=== PATIENT | female | born 1975 | race Caucasian/White ===

== ENCOUNTER 2016-12-14 21:43 | Emergency (ER) | payer BC ==
[~2016-12-14] VITALS: Ht 157.5 cm; Wt 131.5 kg
[~2016-12-14 21:43] MED LIST: HYDR-762 PO; IBUP800T25 PO
[2016-12-14 22:17] VITALS: Ht 157.5 cm; Wt 131.5 kg
[2016-12-14] MEDS ORDERED: IBUPROFEN 600 MG TAB PO ONE (23:00)
[2016-12-14] MEDS ORDERED: NAPR-260 PO (23:02)
--- NOTE | 2016-12-14 23:16 | ERD ---
ER Documentation Chief Complaint Date/Time DATE: 12/14/16 TIME: 23:04 Chief Complaint pain/lump left breast x 3 days HPI This is a 41-year-old otherwise healthy female who presents the emergency department complaining of a painful lump of her left breast 3 days. Patient states that she noticed the pain when putting on her bra off and then felt a small lump in her breast. She states she is concerned as her great aunt had breast cancer however she denies breast cancer among her siblings, parents, grandparents. She denies any redness or swelling of her skin. She denies fever , nausea, vomiting. She denies any chills or night sweats. Her last menstrual period was 1 week ago. No other complaints at this time. ROS All systems reviewed and are negative except as per history of present illness. Medications Home Meds Active Scripts Naproxen* (Naprosyn*) 500 Mg Tablet, 500 MG PO BID for 14 Days, TAB Prov:CRYSTAL ANDREWS PA-C 12/14/16 Hydrocodone Bit-Acetaminophen* ([place]*) 10-325 Mg Tablet, 1 TAB PO Q6 Y for PAIN , #20 TAB Prov:YAMILET LOERA MD 02/15/15 Ibuprofen* (Motrin*) 800 Mg Tab, 800 MG PO Q6, #30 TAB Prov:YAMILET LOERA MD 02/15/15 Allergies Allergies: Coded Allergies: amoxicillin (Verified Allergy, Severe, RASH, 09/09/13) Sulfa (Sulfonamide Antibiotics) (Verified Allergy, Unknown, rash, 12/14/16) Uncoded Allergies: [id number] (SULFA (SULFONAMIDE ANTIBIOTICS)) (Allergy, Severe, RASH, ) PMhx/Soc History of Surgery: Yes () Anesthesia Reaction: No Hx Neurological Disorder: No Hx Respiratory Disorders: No Hx Cardiac Disorders: No Hx Psychiatric Problems: No Hx Miscellaneous Medical Probl: Yes (HTN) Hx Alcohol Use: No Hx Substance Use: No Hx Tobacco Use: No Physical Exam Vitals Vital Signs Date Time Temp Pulse Resp B/P Pulse Ox O2 Delivery O2 Flow Rate FiO2 12/14/16 22:17 98.2 95 20 178/98 100 Physical Exam Const: Well-developed, well-nourished, no acute distress Head: Atraumatic Eyes: Normal Conjunctiva ENT: Normal External Ears, Nose and Mouth. Neck: Full range of motion..~ No meningismus. Resp: Clear to auscultation bilaterally Cardio: Regular rate and rhythm, no murmurs Abd: Soft, non tender, non distended. Normal bowel sounds Skin: Left breast: A soft, well-circumscribed, grapelike mobile masses palpable near 11:00 of the left breast. The mass is tender to palpation. There is no overlying erythema or fluctuance in the skin. No nipple inversion or discoloration. No peau d'orange. Patient does not exhibit axillary lymphadenopathy or supraclavicular lymphadenopathy. Back: No midline or flank tenderness Ext: No cyanosis, or edema Neur: Awake and alert Psych: Normal Mood and Affect Results 24 hrs Current Medications Medications (Trade) Dose Ordered Sig/Matias Route PRN Reason Start Time Stop Time Status Last Admin Dose Admin Ibuprofen (Motrin) 600 mg ONCE ONCE PO 12/14/16 23:00 12/14/16 23:01 DC Procedures/MDM This is an otherwise healthy 41-year-old female who presents the emergency department for a painful breast mass which 3 days ago. Patient denies fever, chills, night sweats, recent weight loss. She does not have any immediate family members with history of breast cancer. Physical exam with evidence of a 1 cm well-circumscribed grapelike smooth, painful mass located near 11:00 of the left breast. No evidence of erythema, swelling, fluctuance, or abnormal nipple appearance. I attempted to contact ultrasound for skin and soft tissue, however I was informed that skin and soft tissue ultrasound cannot be read at this time of night. I had a long conversation with the patient regarding differential diagnosis of her condition and informed her of the lack of imaging where able to perform today. Differential diagnosis includes but are not limited to fibroadenoma, breast cyst , abscess, hematoma, galactocele, or malignancy. Definitive diagnosis cannot be ruled out based on physical exam alone at this time, however low suspicion for skin abscess as there is no erythema or fluctuance. Joint decision was made with the patient to follow-up with [facility] specialist for a needle biopsy and possible mammogram if her symptoms continue. Resources provided. Patient received Motrin while in the emergency department and instructed to continue anti-inflammatory medication. Based on patient's history of present illness and physical examination the decision was made to discharge. There is no evidence of life threatening injuries or illnesses at this time. Patient resting in no distress, stable vital signs, reports feeling better and safe for discharge with outpatient follow up with PMD in 1-2 days. Patient given return precautions. Departure Diagnosis: Primary Impression: Breast mass Additional Impression: Breast pain Condition: Good Patient Instructions: Breast Mass, Uncertain Cause, Fibrocystic Breast Disease , Presumed Additional Instructions: Call your primary care doctor TOMORROW for an appointment during the next 1-2 days.See the doctor sooner or return here if your condition worsens before your appointment time. CRYSTAL ANDREWS PA-C Dec 14, 2016 23:16
[2016-12-14 23:26] VITALS: BP 142/93; PULSE 85; RESP 20; TEMP 98
== END 2016-12-14 23:27 | disposition home or self-care (01) ==
LOC: FTE 21:43
DX: N63 Unspecified lump in breast (principal); I10 Essential (primary) hypertension
CPT/HCPCS: Z7502; Z7610; 99283

== ENCOUNTER 2018-01-13 21:15 | Inpatient (IN) | END 2018-01-14 19:27 | disposition home or self-care (01) | DRG 313 ==

== ENCOUNTER 2018-01-15 09:47 | Emergency (ER) | END 2018-01-15 16:21 | disposition home or self-care (01) ==